=== PATIENT | male | born 2000 | race Caucasian/White ===

== ENCOUNTER 2022-05-19 12:28 | Outpatient (CLI) | payer OTHER | END 2022-05-19 12:29 | disposition home or self-care (01) | LOC: BICCT 12:28 | PROVIDERS: ATTEND Physician Assistant Surgical | DX: S02.91XD Unspecified fracture of skull, subsequent encounter for fracture with routine healing (principal); S06.300D Unspecified focal traumatic brain injury without loss of consciousness, subsequent encounter; S02.119D Unspecified fracture of occiput, subsequent encounter for fracture with routine healing | CPT/HCPCS: 70450 ==